=== PATIENT | male | born 1975 | race Two or more races ===

== ENCOUNTER 2022-09-06 22:27 | Emergency (ER) | payer OTHER, SELFPAY ==
--- NOTE | ~2022-09-06 | XR_ITS ---
EXAMINATION: XR LUMBOSACRAL SPINE CLINICAL INFORMATION: Injury. COMPARISON: None TECHNIQUE: Three views of the lumbosacral spine. FINDINGS: Lumbar vertebrae have normal height and alignment. No fracture. No spondylolysis or spondylolisthesis. Minimal degenerative lipping at the anterior superior endplates of the L2-L5 vertebrae. Lumbar disc heights are normal. Facet joints are normal. XR/XR lumbar spine 2-3V IMPRESSION: 1. No acute abnormality. 2. Mild degenerative change.
[2022-09-06 23:08] VITALS: BP 113/79; PULSE 77; RESP 18; TEMP 36.8; O2SAT 99; BMI 27.8
--- OUTSIDE RECORDS SUMMARY | 2022-09-07 00:25 | XMS_ITS ---
:1975 Author Organization [facility] Address [address] [place] [address] Care Team Providers Name Role Phone Kelley Aguero Unavailable Unavailable PROBLEMS Unknown Problems ALLERGIES No Known Allergies ENCOUNTERS Encounter Location Date Diagnosis [address] Jul, Chest pa in, unspecified [facility] [place], [place] R07.9 and Merged with [facility] [id number] blood-pressure r eading, without diagnosi s of hypertension R03 .0 IMMUNIZATIONS No Known Immunizations SOCIAL HISTORY Never Assessed REASON FOR REFERRAL FUNCTIONAL STATUS PLAN OF CARE Activity Details Pending Test EKG/ECG (In Office) VITAL SIGNS Temperature 98.4 degrees Fahrenheit 2021-08-22 Heart Rate 82 /min 2021-08-22 Oximetry 98 % 2021-08-22 Respiratory Rate 20 /min 2021-08-22 Height 5'8 in 2021-08-22 Weight 193.2 lbs 2021-08-22 BMI 29.37 kg/m2 2021-08-22 Blood pressure systolic 153 mm Hg 2021-08-22 Blood pressure diastolic 98 mm Hg 2021-08-22 MEDICATIONS Medication Instructions Dosage Frequency Start Date End Date Duration S tatus Augmentin Active Singulair Active PredniSONE Active Pantoprazole Sodium Acti ve PROCEDURES Procedure Date Ordered Result Body Site MEDICATION RECONCILIATION Aug 22, 2021 P-HTN/HTN BP DOC F/U NOT RSN NOT GV Aug 22, 2021 Pt scrn tbco id as non user Aug 22, 2021 DOC MEDS VERIFIED W/PT OR RE Aug 22, 2021 BMI<30 AND >=22 CALC & DOCU Aug 22, 2021 Visit_ Aug 22, 2021 ELECTROCARDIOGRAM COMPLETE Aug 22, 2021 RESULTS No Results REASON FOR VISIT Chest pain radiating to left arm, jaw, w/ headache, chest pain Insurance Providers [facility] Member Patient Patient Patient Patient Patient Subscriber Subscriber Subscriber Group Insurance Plan Plan Plan Plan ID Relationship Address Phone Name Date of ID Name Date of No Type Insurance Insurance Insurance Coverage to Subscriber Address Phone Name Dates [employer] [phone] [employer] [facility] [id number] [address] [place] [phone]
--- NOTE | 2022-09-07 01:04 | ED_ITS ---
HPI - Back Pain/Injury General Chief Complaint: Back Pain/Injury Stated Complaint: Back pain, Hurt at work Time Seen by Provider: 09/07/22 00:14 History of Present Illness HPI Narrative: Patient is a 46-year-old male presents today with having back pain. The back pain is on the left side radiating down to the legs. The pain is sharp. Patient reports pulling a heavy object then started having the pain in his back. Denies any bowel urinary incontinence. Denies any focal weakness. Feels the pain sharp. Denies any trauma. Related Data Previous Rx's Medication Instructions Recorded cyclobenzaprine 10 mg tablet 10 mg PO TID PRN pain #14 tabs 09/07/22 ibuprofen 400 mg tablet 400 mg PO Q6H PRN pain #20 tabs 09/07/22 Allergies Allergy/AdvReac Type Severity Reaction Status Date / Time sesame seed AdvReac Unknown Verified 09/06/22 23:07 walnut AdvReac Unknown Verified 09/06/22 23:07 yeast, dried AdvReac Unknown Verified 09/06/22 23:07 Review of Systems Review of Systems: No bowel urinary incontinence. No focal weakness Yes all other systems are reviewed and are negative [facility] Social History Social History Advance Directives: No Advance Directives Information Provided: No Physical Exam Vital Signs: Vital Signs: Last Vital Signs Temp 98.3 F 09/06/22 23:08 Pulse 77 09/06/22 23:08 Resp 18 09/06/22 23:08 BP 113/79 09/06/22 23:08 Pulse Ox 99 09/06/22 23:08 O2 Del Method 09/06/22 23:08 BMI result Body Mass Index 27.8 Appearance: Alert. Oriented X3. No acute distress. Eyes: Pupils equal, round and reactive to light. ENT: Pharynx normal. Neck: Normal inspection. Neck supple. No lymph nodes noted. No crepitus CVS: Normal heart rate and rhythm. Pulses normal. Normal S1 and S2 Respiratory: No respiratory distress. Breath sounds normal. No Wheezing. No rales Abdomen: Soft and nontender. No rigidity. No distention. good BS x4 Skin: Skin warm and dry. Normal skin color. Normal skin turgor. Extremities: No lower extremity edema. Neurovascular intact to all extremities. No Lacerations. No Rash Neuro: Oriented X 3. No motor deficit. No sensory deficit. Moving all extermities. No slurred speech. There is good sensation bilateral lower extremity. Ambulated with a normal gait. Reflex equal 2+ at the patella MDM - Back Pain/Injury MDM Narrative Medical decision making narrative: Question sciatica patient has pain rating down to the leg. We will go ahead and give patient some Motrin for pain. Muscle relaxant. Follow up on an outpatient basis with [facility]. In stable condition. There is no focal weaknesses no bowel urinary incontinence Medical Records Attestation: I reviewed the patient's medical records. Discharge Plan Discharge Clinical Impression: Sciatica Patient Disposition: Home, Self-Care Instructions: Sciatica (ED) Prescriptions: New cyclobenzaprine 10 mg tablet 10 mg PO TID PRN (Reason: pain) Qty: 14 0RF ibuprofen 400 mg tablet 400 mg PO Q6H PRN (Reason: pain) Qty: 20 0RF Referrals: [facility] [Provider Group] (Follow-up with [facility] in 2-3 days.)
== END 2022-09-07 01:26 | disposition home or self-care (01) ==
PROVIDERS: Emergency Provider Emergency Medicine Emergency Medical Services
DX: M54.42 Lumbago with sciatica, left side (principal); Z79.899 Other long term (current) drug therapy
CPT/HCPCS: 72100; 99283